=== PATIENT | male | born 1990 | race Caucasian/White ===

== ENCOUNTER 2024-11-26 16:21 | Emergency (ER) | payer OTHER, SELFPAY ==
--- NOTE | ~2024-11-26 | XR_ITS ---
XR elbow RT min 3V Ordering provider: Estela Rainey III, DO History: . trauma PAIN PRIMARILY TO ELBOW NON SPECIFIC PAIN . Comparison: None. FINDINGS: BONES: No acute fracture or dislocation. JOINT SPACES: Normal. SOFT TISSUES: Unremarkable. No definite joint effusion. IMPRESSION: No acute osseous abnormality of the right elbow. Reviewed, dictated and finalized at location A.
--- NOTE | ~2024-11-26 | XR_ITS ---
XR forearm RT 2V Ordering provider: Estela Rainey III, History: . trauma . Comparison: None. FINDINGS: BONES: No acute fracture or dislocation. JOINT SPACES: Normal. SOFT TISSUES: Normal. IMPRESSION: No acute osseous abnormality right forearm. Reviewed, dictated and finalized at location A.
[2024-11-26 16:24] VITALS: BP 140/95; PULSE 75; RESP 16; TEMP 36.4; O2SAT 97
--- NOTE | 2024-11-26 17:06 | ED_ITS ---
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 Pt says it hurts when he straightens his arm and flexes and extends his wrist. Related Data Allergies Allergy/AdvReac Type Severity Reaction Status Date / Time No Known Allergies Allergy Verified 11/26/24 16:28 Review of Systems Review of Systems: All systems reviewed & are unremarkable except as noted in HPI and below Exam Const: General: healthy appearing and no acute distress Nutritional Appearance: well nourished Orientation/consciousness: patient oriented x3 Limitations: no limitations Skin: General skin exam: normal color Rashes: no rashes Wounds: no wounds Neuro: General: patient oriented x3, moves all extremities and no focal motor deficits Extrem: Other: tender to palpation right proximal forearm no swelling or deformity tender behind left elbow no swelling or deformity noted. pulses and sensation intact. Psych: Mental Status: mental status grossly normal Affect: normal affect Attitude: cooperative Course Vital Signs Vital signs: Vital Signs Temperature 97.5 F L 11/26/24 16:24 Pulse Rate 75 11/26/24 16:24 Respiratory Rate 16 11/26/24 16:24 Blood Pressure 140/95 H 11/26/24 16:24 Pulse Oximetry 97 11/26/24 16:24 Oxygen Delivery Room Air 11/26/24 16:24 Temperature 97.5 F L 11/26/24 16:24 Pulse Rate 75 11/26/24 16:24 Respiratory Rate 16 11/26/24 16:24 Blood Pressure 140/95 H 11/26/24 16:24 Pulse Oximetry 97 11/26/24 16:24 Oxygen Delivery Room Air 11/26/24 16:24 MDM - Extremity Injury (Upper) MDM Narrative Medical decision making narrative: seems like muscle pull or strain but will x ray to be safe. x rays neg.joaquín and sling and home on naprosyn Discharge Plan Discharge Clinical Impression: Sprain of forearm, right Patient Disposition: Home Condition: Stable Instructions: Antibiotic Form, Elbow Sprain (ED) Patient Language: Icelandic Prescriptions: New naproxen [Naprosyn] 500 mg tablet 500 mg PO BID Qty: 20 0RF Follow-up/Referrals: PHYSICIAN NOT ON STAFF,NONSTAFF [Primary Care Provider] - Stand Alone Forms: Work/School Release IP
--- OUTSIDE RECORDS SUMMARY | 2024-11-26 17:30 | XMS_ITS | Referral Summary ---
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 16 tablet 9 Active tamsulosin (FLOMAX) 0.4 mg extended release capsule Take 1 capsule (0.4 mg total) by mouth daily 7 capsule 9 Active ondansetron ODT (ZOFRAN-ODT) 4 mg disintegrating tablet Dissolve 1 tablet oral every 4 hours as needed for nausea or vomiting. 15 tablet 9 Active oxybutynin (DITROPAN) 5 mg tablet Take 1 tablet (5 mg total) by mouth 3 (three) times a day as needed (bladder spasms) for up to 10 days 30 tablet 3 1 Active ketorolac (TORADOL) 10 mg tabletIndications:R enal Colic Take 1 tablet (10 mg total) by mouth every 6 (six) hours as needed for pain 20 tablet 4 Active ondansetron (ZOFRAN) 4 mg tablet Take 1 tablet (4 mg total) by mouth every 6 (six) hours 12 tablet 4 Active tamsulosin (FLOMAX) 0.4 mg extended release capsule Take 1 capsule (0.4 mg total) by mouth daily 7 capsule 4 Active Active Problems No known active problems Social History Tobacco Use Types Packs/Day Years Used Date Smoking Tobacco: Light Smoker Cigars Smokeless Tobacco: Never Comments:1 cigar every coupl e weeks Alcohol Use Standard Drinks/Week Comments No 0 (1 standard drink = 0.6 oz pur e alcohol) Personal Safety Answer Date Recorded Have you ever been in or are you currently in a harmful physical or emotional relationship or is someone making you feel afraid or unsafe? 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 Gender Identity Not on file Sexual Orientation Not on file Last Filed Vital Signs Vital Sign Reading Time Taken Comments Blood Pressure 129/79 02/28/2024 1:46 AM CDT Pulse 62 02/28/2024 1:46 AM CDT Temperature 36.6 C (97.8 F) 02/28/2024 1:46 AM CDT Respiratory Rate 32 02/28/2024 1:46 AM CDT Oxygen Saturation 96% 02/28/2024 1:46 AM CDT Inhaled Oxygen Concentration - - Weight 79.8 kg (176 lb) 02/28/2024 1:46 AM CDT Height 177.8 cm (5' 10) 02/28/2024 1:46 AM CDT Body Mass Index 25.25 02/28/2024 1:46 AM CDT Plan of Treatment Not on file Medical Devices Implanted Type Area Production Sanitizer Device Identifier Shelf Expiration Date Model / Serial / Lot [employer] [id number] Inlay [place] 7fr 28cm Pusher Fluoro Marker Atraumatic Insertion Latex Free - [id number] Implanted:Qty: 1 on 11/22/2020 by Mark Lazar MD at [facility] Explanted:12/27 by Estefania Phillips NP (Quantity not on file) N/A: Urethra [employer] 07/16/2025 [id number] / / [id number] Description:Patient pulled t he stent at home POD-5. 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
--- OUTSIDE RECORDS SUMMARY | 2024-11-26 17:30 | XMS_ITS | Patient Health Record ---
Author Organization [facility] Address [address] [place] [address] [place], [place] [id number] Care Team Providers Care Front Desk Administrator Name Role Phone Arron Guzman MD Primary Care Provider Unavail able Drew Tirado Unavailable [phone] Reason For Referral No Information Plan Of Treatment Pending Test Test Name Order Date Basic Metabolic Panel 09/24/2014 Renal Panel 07/16/2014 Future Test Test Name Order Date Urinalysis, Complete 07/16/2014 random urine for protein to creatine rat io 07/16/2014 Renal Panel 07/16/2014 Insurance Providers Payer Name Payer Address Payer Phone Subscriber Number Group Number Insured Name Patient Relationship to Insured Coverage Start Date Coverage End Date Cigna [id number] JILL Soriano [phone] [id number] Yevgeniy Renteria Self - patient is the insured Medical (General) History Medical History History ICD Code ADD, ADHD: no meds
--- OUTSIDE RECORDS SUMMARY | 2024-11-26 17:30 | XMS_ITS | Clinical Summary ---
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 Name Role Phone Arron Guzman MD Primary Care Provider Allergies No known active allergies Medications No known medications Social History Tobacco Use Types Packs/Day Years Used Date Smoking Tobacco: Never Tobacco Cessation:Counseling Given: Not Answered Alcohol Use Standard Drinks/Week Comments Yes 0 (1 standard drink = 0.6 oz pur e alcohol) rarely Sex and Gender Information Value Date Recorded Sex Assigned at Not on file Legal Sex Male 10:43 PM CDT Gender Identity Not on file Sexual Orientation Not on file Last Filed Vital Signs Vital Sign Reading Time Taken Comments Blood Pressure 127/69 05/14/2022 11:07 PM RADIOLOGY ORDERLY Pulse 70 05/14/2022 11:07 PM RADIOLOGY ORDERLY Temperature 36 C (96.8 F) 05/14/2022 11:07 PM RADIOLOGY ORDERLY Respiratory Rate 18 05/14/2022 11:07 PM RADIOLOGY ORDERLY Oxygen Saturation 97% 05/14/2022 11:07 PM RADIOLOGY ORDERLY Inhaled Oxygen Concentration - - Weight 83.5 kg (184 lb) 05/14/2022 11:07 PM RADIOLOGY ORDERLY Height 175.3 cm (5' 9) 05/14/2022 11:07 PM RADIOLOGY ORDERLY Body Mass Index 27.17 05/14/2022 11:07 PM RADIOLOGY ORDERLY Plan of Treatment Not on file Insurance [facility] Care Teams Tongue And Groove Machine Setter Relationship Specialty Start Date End Date Arron Guzman MD [address] [place] [address] [address] PCP - General Internal Medicine 05/14/22
--- OUTSIDE RECORDS SUMMARY | 2024-11-26 17:30 | XMS_ITS | Clinical Summary ---
Author Organization [facility] Address [address] [place] [address] Care Team Providers Care Temple Marker Name Role Phone Arron Guzman MD Primary Care Provider Arron Guzman MD Unavailable [phone] Allergies No known active allergies Medications HYDROcodone-acetami [...] Active Active Problems No known active problems Surgical History Surgery Date Site/Laterality Comments OTHER SURGICAL HISTORY fracture arm: cast Medical History Medical History Date Comments Hx Other Medical fracture arm Hx Other Medical 2013 [facility] piece of metal in eye Social History Tobacco Use Types Packs/Day Years [...] on file 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 Gender Identity Not on file Sexual Orientation Not on file Obstetrics History Last Filed Vital Signs Vital Sign Reading [...] 02/28/2024 1:46 AM CDT Plan of Treatment Health Maintenance Due Date Last Done Comments Depression Screening 1989 Hepatitis C Screening 1989 Varicella Vaccines (1 of 2 - 13+ 2-dose series) 2002 Hepatitis B Screening 2007 Regular Well Visit/Exam 18-64 2007 Pneumococcal vaccine <65 (1 of 2 - PCV) 02/26/2008 Influenza Vaccine (Season Ended) 2025 DTaP/Tdap/Td Vaccine (2 - Td or Tdap) 07/30/2026 07/30/2016 HPV Vaccines Aged Out No longer eligi ble based on patient's age to complete this topic Medical Devices Implanted Type Area Log Check Scaler Device Identifier Shelf Expiration Date Model / Serial / Lot [employer] [id number] Inlay [place] 7fr 28cm Pusher Fluoro Marker Atraumatic Insertion Latex Free - [id number] Implanted:Qty: 1 on 11/22/2020 by Mark Lazar MD at [facility] Explanted:12/27 by Estefania Phillips, CLINICAL ESTHETICIAN (Quantity not on file) N/A: Urethra [employer] 07/16/2025 [id number] / / [id number] Description:Patient pulled t he stent at home POD-5. Insurance [employer]r [employer] OOS [employer] OOS Advance Directives For more information, please contact: [phone] * Full Code (Latest Code Status on File) Date Activated Date Inactivated Comments 11/21/2020 8:21 PM 11/22/2020 7:45 PM Care Teams Temple Marker Relationship Specialty Start Date End Date Arron Guzman MD PCP - General 12/05/18 Arron Guzman MD 12/05/18
[2024-11-26 17:57] VITALS: BP 129/81; PULSE 68; RESP 16; O2SAT 98
== END 2024-11-26 17:59 | disposition home or self-care (01) ==
LOC: ANHED 17:29
PROVIDERS: Emergency Provider Emergency Medicine
DX: S53.491A Other sprain of right elbow, initial encounter (principal); X50.0XXA Overexertion from strenuous movement or load, initial encounter; Y99.0 Civilian activity done for income or pay
CPT/HCPCS: 73080; 73090; 99283; A4565